=== PATIENT | male | born 1960 | race Caucasian/White ===

== ENCOUNTER → 2018-05-25 08:11 | Outpatient (CLI) | payer OTHER, SELFPAY ==
[2018-05-25 09:23] LABS: Appearance Urine UA CLEAR; Bilirubin Urine UA NEGATIVE (NEGATIVE); Color Urine UA YELLOW; Glucose Urine UA NEGATIVE (Normal); Ketones Urine UA NEGATIVE (NEGATIVE); Leukocyte Esterase Urine UA NEGATIVE (NEGATIVE); Nitrite Urine UA Negative (Negative); Occult Blood Urine UA TRACE-INTACT (Negative); Protein Urine UA NEGATIVE (Negative); Urobilinogen Urine UA 0.2 E.U./dL (0.2)
[2018-05-25 09:26] LABS: Add Manual Diff / Slide Review NO; Basophils Percent Auto 1.3 % (0-2); Eosinophils Percent Auto 3.4 % (2-4); Hemoglobin 14.4 g/dL (13.5-17.5); Lymphocytes Percent Auto 30.2 % (25-40); Mean Corpuscular HGB Conc 33.5 % (30-36); Mean Corpuscular Hemoglobin 29.9 PG (26-34); Mean Corpuscular Volume 89.3 fL (80-100); Monocytes Percent Auto 8.7 % (3-14); Neutrophils Absolute Auto 3200 /uL (3000-5900); Neutrophils Percent Auto 56.4 % (50-75); Platelet Count 264 X10^3/uL (150-400); Red Blood Cell Count 4.81 X10^6/uL (4.5-5.9); Red Cell Distribution Width 13.5 % (11.6-14.8); White Blood Cell Count 5.6 X10^3/uL (4.5-11.0)
[2018-05-25 10:06] LABS: Alanine Aminotransferase 42 IU/L (21-72); Albumin 4.1 g/dL (3.5-5.0); Albumin Globulin Ratio 1.4 (1.0-2.8); Alkaline Phosphatase 41 U/L (38-126); Aspartate Aminotransferase 27 IU/L (17-59); BUN Creatinine Ratio 21.3 (6-22); Bilirubin Total 0.4 mg/dL (0.2-1.3); Blood Urea Nitrogen 17 mg/dL (9-20); Calcium 9.2 mg/dL (8.4-10.2); Carbon Dioxide 29 mmol/L (22-32); Chloride 104 mmol/L (98-107); Cholesterol 176 mg/dL (140-199); Estimated Glomerular Filt Rate > 60.0 mL/min (>60); Globulin 2.9 g/dL (1.7-4.1); Glucose 93 mg/dL (70-100); HDL Cholesterol 48 mg/dL (40-60); HEMOLYSIS < 15 (0-50); LDL Cholesterol Calculated 108 mg/dL (<100); Potassium 3.9 mmol/L (3.4-5.1); Sodium 143 mmol/L (137-145); Triglycerides 100 mg/dL (35-150)
[2018-05-25 10:34] LABS: Prostate Specific Antigen Scrn 1.94 ng/mL (0.1-4.0)
[2018-05-25 10:38] LABS: Thyroid Stimulating Hormone 1.98 uIU/mL (0.47-4.68)
== END ==
PROVIDERS: PCP Family Medicine; Visit Provider Family Medicine
DX: E78.5 Hyperlipidemia, unspecified (principal); I10 Essential (primary) hypertension; Z12.5 Encounter for screening for malignant neoplasm of prostate
CPT/HCPCS: 36415; 80053; 80061; 81003; 84443; 85025; G0103

== ENCOUNTER → 2018-12-17 06:56 | Outpatient (CLI) | payer BC, SELFPAY ==
[2018-12-17 08:51] LABS: Alanine Aminotransferase 32 IU/L (21-72); Albumin 4.2 g/dL (3.5-5.0); Albumin Globulin Ratio 1.5 (1.0-2.8); Alkaline Phosphatase 52 U/L (38-126); Aspartate Aminotransferase 25 IU/L (17-59); Bilirubin Total 0.5 mg/dL (0.2-1.3); Blood Urea Nitrogen 20 mg/dL (9-20); Calcium 9.3 mg/dL (8.4-10.2); Carbon Dioxide 27 mmol/L (22-32); Chloride 101 mmol/L (98-107); Cholesterol 174 mg/dL (140-199); Estimated Glomerular Filt Rate > 60.0 mL/min (>60); Globulin 2.8 g/dL (1.7-4.1); Glucose 89 mg/dL (70-100); HDL Cholesterol 40 mg/dL (40-60); HEMOLYSIS < 15 (0-50); LDL Cholesterol Calculated 103 mg/dL (<100); Potassium 4.4 mmol/L (3.4-5.1); Sodium 137 mmol/L (137-145); Triglycerides 153 mg/dL (35-150)
== END ==
PROVIDERS: PCP Family Medicine; Visit Provider Family Medicine
DX: E78.5 Hyperlipidemia, unspecified (principal)
CPT/HCPCS: 36415; 80053; 80061

== ENCOUNTER → 2019-09-02 07:48 | Outpatient (CLI) | payer BC, SELFPAY ==
[2019-09-02 09:20] LABS: Appearance Urine UA CLEAR; Bilirubin Urine UA NEGATIVE (NEGATIVE); Color Urine UA YELLOW; Glucose Urine UA NEGATIVE (Negative); Ketones Urine UA NEGATIVE (NEGATIVE); Leukocyte Esterase Urine UA NEGATIVE (NEGATIVE); Nitrite Urine UA NEGATIVE (Negative); Occult Blood Urine UA TRACE-LYSED (Negative); Protein Urine UA NEGATIVE (Negative); Specific Gravity Urine UA 1.015 (1.000-1.035); Urobilinogen Urine UA 0.2 E.U./dL (0.2)
[2019-09-02 09:33] LABS: Add Manual Diff / Slide Review NO; Basophils Absolute Auto 100 /uL (0-100); Basophils Percent Auto 1.3 % (0-2); Eosinophils Absolute Auto 200 /uL (0-450); Eosinophils Percent Auto 3.9 % (2-4); Hematocrit 42.3 % (41-53); Hemoglobin 14.3 g/dL (13.5-17.5); Lymphocytes Absolute Auto 1500 /uL (1100-4500); Lymphocytes Percent Auto 27.8 % (25-40); Mean Corpuscular HGB Conc 33.8 % (30-36); Mean Corpuscular Hemoglobin 30.2 PG (26-34); Mean Corpuscular Volume 89.3 fL (80-100); Monocytes Absolute Auto 700 /uL (0-900); Monocytes Percent Auto 12.7 % (3-14); Neutrophils Absolute Auto 2900 /uL (1500-7000); Neutrophils Percent Auto 54.3 % (50-75); Platelet Count 262 X10^3/uL (150-400); Red Blood Cell Count 4.73 X10^6/uL (4.5-5.9); Red Cell Distribution Width 13.8 % (11.6-14.8); White Blood Cell Count 5.3 X10^3/uL (4.5-11.0)
[2019-09-02 09:39] LABS: Alanine Aminotransferase 23 IU/L (<50); Albumin 4.5 g/dL (3.5-5.0); Albumin Globulin Ratio 1.6 (1.0-2.8); Alkaline Phosphatase 47 U/L (38-126); Aspartate Aminotransferase 29 IU/L (17-59); BUN Creatinine Ratio 18.6 (6-22); Bilirubin Total 0.6 mg/dL (0.2-1.3); Blood Urea Nitrogen 13 mg/dL (9-20); Calcium 9.3 mg/dL (8.4-10.2); Carbon Dioxide 31 mmol/L (22-32); Chloride 104 mmol/L (98-107); Cholesterol 158 mg/dL (140-199); Estimated Glomerular Filt Rate > 60.0 mL/min (>60); Globulin 2.9 g/dL (1.7-4.1); Glucose 89 mg/dL (70-100); HDL Cholesterol 41 mg/dL (40-60); HEMOLYSIS < 15 (0-50); LDL Cholesterol Calculated 93 mg/dL (<100); Potassium 4.1 mmol/L (3.4-5.1); Sodium 141 mmol/L (137-145); Total Protein 7.4 g/dL (6.3-8.2); Triglycerides 122 mg/dL (35-150)
[2019-09-02 10:07] LABS: Prostate Specific Antigen Scrn 2.89 ng/mL (0.1-4.0)
[2019-09-02 10:30] LABS: Thyroid Stimulating Hormone 2.22 uIU/mL (0.47-4.68)
== END ==
PROVIDERS: PCP Family Medicine; Visit Provider Family Medicine
DX: Z12.5 Encounter for screening for malignant neoplasm of prostate (principal); Z51.81 Encounter for therapeutic drug level monitoring; E78.5 Hyperlipidemia, unspecified; I10 Essential (primary) hypertension
CPT/HCPCS: 36415; 80053; 80061; 81003; 84443; 85025; G0103

== ENCOUNTER → 2021-01-21 07:30 | Outpatient (CLI) | payer BC, SELFPAY ==
[2021-01-21 08:09] LABS: Add Manual Diff / Slide Review NO; Basophils Absolute Auto 100 /uL (0-100); Basophils Percent Auto 1.2 % (0-2); Eosinophils Absolute Auto 300 /uL (0-450); Eosinophils Percent Auto 5.4 % (2-4); Hemoglobin 14.2 g/dL (13.5-17.5); Lymphocytes Absolute Auto 1800 /uL (1100-4500); Lymphocytes Percent Auto 32.6 % (25-40); Mean Corpuscular HGB Conc 33.8 % (30-36); Mean Corpuscular Hemoglobin 30.3 PG (26-34); Mean Corpuscular Volume 89.6 fL (80-100); Monocytes Absolute Auto 500 /uL (0-900); Monocytes Percent Auto 9.9 % (3-14); Neutrophils Absolute Auto 2800 /uL (1500-7000); Neutrophils Percent Auto 50.9 % (50-75); Platelet Count 259 X10^3/uL (150-400); Red Blood Cell Count 4.68 X10^6/uL (4.5-5.9); Red Cell Distribution Width 13.1 % (11.6-14.8); White Blood Cell Count 5.5 X10^3/uL (4.5-11.0)
[2021-01-21 08:28] LABS: Alanine Aminotransferase 26 IU/L (<50); Albumin Globulin Ratio 1.5 (1.0-2.8); Alkaline Phosphatase 44 U/L (38-126); Aspartate Aminotransferase 27 IU/L (17-59); BUN Creatinine Ratio 18.1 (6-22); Bilirubin Total 0.5 mg/dL (0.2-1.3); Blood Urea Nitrogen 13 mg/dL (9-20); Calcium 9.3 mg/dL (8.4-10.2); Carbon Dioxide 27 mmol/L (22-32); Chloride 104 mmol/L (98-107); Cholesterol 169 mg/dL (140-199); Estimated Glomerular Filt Rate > 60.0 mL/min (>60); Globulin 2.7 g/dL (1.7-4.1); Glucose 98 mg/dL (80-110); HDL Cholesterol 53 mg/dL (40-60); HEMOLYSIS < 15 (0-50); LDL Cholesterol Calculated 82 mg/dL (<100); Potassium 4.3 mmol/L (3.4-5.1); Sodium 137 mmol/L (137-145); Total Protein 6.7 g/dL (6.3-8.2); Triglycerides 168 mg/dL (35-150)
[2021-01-21 08:44] LABS: Creatinine Urine Random 80.5 mg/dL; Microalbumin Urine Random < 0.6 mg/dL (0-1.6)
[2021-01-21 08:57] LABS: TSH w/ Reflex to FT4 2.27 uIU/mL (0.47-4.68)
== END ==
PROVIDERS: PCP Family Medicine; Referring Provider Family Medicine; Visit Provider Family Medicine
DX: E78.5 Hyperlipidemia, unspecified (principal); I10 Essential (primary) hypertension; N40.1 Benign prostatic hyperplasia with lower urinary tract symptoms; Z13.29 Encounter for screening for other suspected endocrine disorder; Z12.5 Encounter for screening for malignant neoplasm of prostate
CPT/HCPCS: 36415; 80053; 80061; 82043; 82570; 84443; 85025; G0103

== ENCOUNTER → 2021-08-30 14:16 | Outpatient (CLI) | payer BC, SELFPAY ==
--- NOTE | 2021-08-30 14:17 | DI.RAD.S_ITS ---
PROCEDURE: XR LUMBAR SPINE MIN 4V INDICATIONS: worsening lower back pain TECHNIQUE: 5 views of the lumbar spine acquired, including flexion and extension views. COMPARISON: None. FINDINGS: Bones: 5 nonrib-bearing vertebrae are present. Trace multi listhesis. Mild multilevel disc degeneration and facet joint arthropathy at the L4-L5 and L5-S1 levels. No vertebral body compression fractures. No suspicious bony lesions. Soft tissues: Overlying bowel gas pattern is normal. No suspicious soft tissue calcifications. IMPRESSION: Multilevel spondylosis. Dictated by: Brian Bailey [facility] Interpreted: Mushtaq Hoff MD on 08/30/2021 at 16:07 Transcribed by: SUBHASH on 08/30/2021 at 16:07 Approved by: Mushtaq Hoff M.D. on 08/30/2021 at 17:28
== END ==
PROVIDERS: PCP Family Medicine; Referring Provider Family Medicine; Visit Provider Family Medicine
DX: S39.012A Strain of muscle, fascia and tendon of lower back, initial encounter (principal); M47.816 Spondylosis without myelopathy or radiculopathy, lumbar region; M47.817 Spondylosis without myelopathy or radiculopathy, lumbosacral region
CPT/HCPCS: 72110

== ENCOUNTER → 2022-07-29 07:07 | Outpatient (CLI) | payer OTHER, SELFPAY ==
[2022-07-29 11:17] LABS: Alanine Aminotransferase 41 IU/L (<50); Albumin 4.3 g/dL (3.5-5.0); Albumin Globulin Ratio 1.7 (1.0-2.8); Alkaline Phosphatase 52 U/L (38-126); Aspartate Aminotransferase 31 IU/L (17-59); BUN Creatinine Ratio 19.7 (6-22); Bilirubin Total 0.5 mg/dL (0.2-1.3); Blood Urea Nitrogen 14 mg/dL (9-20); Calcium 8.9 mg/dL (8.4-10.2); Carbon Dioxide 28 mmol/L (22-32); Chloride 101 mmol/L (98-107); Estimated Glomerular Filt Rate > 60 mL/min (>60); Globulin 2.6 g/dL (1.7-4.1); Glucose 84 mg/dL (80-110); Sodium 138 mmol/L (137-145); Total Protein 6.9 g/dL (6.3-8.2)
[2022-07-29 11:21] LABS: HEMOLYSIS < 15 (0-50)
[2022-07-29 12:44] LABS: Prostate Specific Antigen Scrn 3.41 ng/mL (0.1-4.0)
== END ==
PROVIDERS: PCP Family Medicine; Referring Provider Family Medicine; Visit Provider Family Medicine
DX: E78.5 Hyperlipidemia, unspecified (principal); I10 Essential (primary) hypertension; Z12.5 Encounter for screening for malignant neoplasm of prostate
CPT/HCPCS: 36415; 80053; G0103

== ENCOUNTER → 2023-05-17 11:01 | Outpatient (CLI) | payer OTHER, SELFPAY ==
--- NOTE | 2023-05-17 11:02 | DI.RAD.S_ITS ---
PROCEDURE: XR KNEE RT 3V INDICATIONS: Right knee pain TECHNIQUE: 3 views of the knee were acquired. COMPARISON: None. FINDINGS: Bones: No fractures or dislocations. Joint spaces are maintained. No suspicious bony lesions. Soft tissues: Small joint effusion. No suspicious soft tissue calcifications. Mild prepatellar soft tissue swelling. Or IMPRESSION: No acute fracture or dislocation. Dictated by: Marija Damon M.D. on 05/17/2023 at 14:35 Approved by: Marija Damon M.D. on 05/17/2023 at 14:37
== END ==
PROVIDERS: PCP Family Medicine; Referring Provider Nurse Practitioner Family; Visit Provider Nurse Practitioner Family
DX: M25.561 Pain in right knee (principal)
CPT/HCPCS: 73562

== ENCOUNTER → 2023-08-17 08:48 | Outpatient (CLI) | payer OTHER, SELFPAY ==
[2023-08-17 09:46] LABS: Add Manual Diff / Slide Review NO; Basophils Absolute Auto 100 /uL (0-100); Basophils Percent Auto 0.8 % (0-2); Eosinophils Absolute Auto 200 /uL (0-450); Eosinophils Percent Auto 3.8 % (2-4); Hematocrit 39.9 % (41-53); Hemoglobin 13.3 g/dL (13.5-17.5); Lymphocytes Absolute Auto 1500 /uL (1100-4500); Lymphocytes Percent Auto 23.2 % (25-40); Mean Corpuscular HGB Conc 33.2 % (30-36); Mean Corpuscular Hemoglobin 29.3 PG (26-34); Mean Corpuscular Volume 88.3 fL (80-100); Monocytes Absolute Auto 700 /uL (0-900); Monocytes Percent Auto 10.6 % (3-14); Neutrophils Absolute Auto 4000 /uL (1500-7000); Neutrophils Percent Auto 61.6 % (50-75); Platelet Count 312 X10^3/uL (150-400); Red Blood Cell Count 4.52 X10^6/uL (4.5-5.9); Red Cell Distribution Width 13.4 % (11.6-14.8); White Blood Cell Count 6.5 X10^3/uL (4.5-11.0)
[2023-08-17 10:22] LABS: Alanine Aminotransferase 22 IU/L (<50); Albumin 3.9 g/dL (3.5-5.0); Albumin Globulin Ratio 1.2 (1.0-2.8); Alkaline Phosphatase 55 U/L (38-126); BUN Creatinine Ratio 15.7 (6-22); Bilirubin Total 0.4 mg/dL (0.2-1.3); Blood Urea Nitrogen 11 mg/dL (9-20); Calcium 9.1 mg/dL (8.4-10.2); Carbon Dioxide 31 mmol/L (22-32); Chloride 102 mmol/L (98-107); Cholesterol 146 mg/dL (140-199); Estimated Glomerular Filt Rate > 60 mL/min (>60); Globulin 3.2 g/dL (1.7-4.1); Glucose 94 mg/dL (80-110); HDL Cholesterol 42 mg/dL (40-60); HEMOLYSIS < 15 (0-50); LDL Cholesterol Calculated 88 mg/dL (<100); Potassium 4.1 mmol/L (3.4-5.1); Sodium 138 mmol/L (137-145); Total Protein 7.1 g/dL (6.3-8.2); Triglycerides 82 mg/dL (35-150)
[2023-08-17 10:39] LABS: Prostate Specific Antigen 2.19 ng/mL (0.10-4.00)
[2023-08-17 12:52] LABS: TSH w/ Reflex to FT4 1.72 uIU/mL (0.47-4.68)
[2023-08-18 14:56] LABS: Aspartate Aminotransferase 26 IU/L (17-59)
== END ==
PROVIDERS: PCP Family Medicine; Referring Provider Family Medicine; Visit Provider Family Medicine
DX: F41.9 Anxiety disorder, unspecified (principal); N40.1 Benign prostatic hyperplasia with lower urinary tract symptoms; I10 Essential (primary) hypertension; E78.5 Hyperlipidemia, unspecified
CPT/HCPCS: 36415; 80053; 80061; 84153; 84443; 85025

== ENCOUNTER → 2024-08-22 08:16 | Outpatient (CLI) | payer BC, SELFPAY ==
[2024-08-22 08:37] LABS: Add Manual Diff / Slide Review NO; Basophils Absolute Auto 100 /uL (0-100); Eosinophils Absolute Auto 300 /uL (0-450); Hematocrit 42.3 % (41-53); Hemoglobin 14.2 g/dL (13.5-17.5); Lymphocytes Absolute Auto 1600 /uL (1100-4500); Lymphocytes Percent Auto 26.9 % (25-40); Mean Corpuscular HGB Conc 33.7 % (30-36); Mean Corpuscular Volume 89.2 fL (80-100); Monocytes Absolute Auto 600 /uL (0-900); Monocytes Percent Auto 10.4 % (3-14); Neutrophils Absolute Auto 3400 /uL (1500-7000); Neutrophils Percent Auto 56.7 % (50-75); Platelet Count 286 X10^3/uL (150-400); Red Blood Cell Count 4.74 X10^6/uL (4.5-5.9); Red Cell Distribution Width 13.4 % (11.6-14.8)
[2024-08-22 08:58] LABS: Alanine Aminotransferase 26 IU/L (<50); Albumin 4.2 g/dL (3.5-5.0); Albumin Globulin Ratio 1.8 (1.0-2.8); Alkaline Phosphatase 50 U/L (38-126); Aspartate Aminotransferase 25 IU/L (17-59); BUN Creatinine Ratio 17.6 (6-22); Bilirubin Total 0.7 mg/dL (0.2-1.3); Blood Urea Nitrogen 13 mg/dL (9-20); Calcium 9.4 mg/dL (8.4-10.2); Carbon Dioxide 27 mmol/L (22-32); Chloride 106 mmol/L (98-107); Cholesterol 189 mg/dL (140-199); Estimated Glomerular Filt Rate > 60 mL/min (>60); Globulin 2.4 g/dL (1.7-4.1); Glucose 98 mg/dL (80-110); HDL Cholesterol 46 mg/dL (40-60); HEMOLYSIS < 15 (0-50); LDL Cholesterol Calculated 108 mg/dL (<100); Sodium 137 mmol/L (137-145); Total Protein 6.6 g/dL (6.3-8.2); Triglycerides 175 mg/dL (35-150)
[2024-08-22 09:28] LABS: Prostate Specific Antigen 1.51 ng/mL (0.10-4.00); Prostate Specific Antigen Scrn 1.53 ng/mL (0.1-4.0)
== END ==
PROVIDERS: PCP Family Medicine; Referring Provider Urology; Visit Provider Urology
DX: Z12.5 Encounter for screening for malignant neoplasm of prostate (principal); N40.1 Benign prostatic hyperplasia with lower urinary tract symptoms; I10 Essential (primary) hypertension; E78.5 Hyperlipidemia, unspecified
CPT/HCPCS: 36415; 80053; 80061; 84153; 85025; G0103

== ENCOUNTER 2024-12-10 07:11 | Day surgery (SDC) | payer BC, SELFPAY ==
[2024-12-10] MEDS: LACTATED RINGERS 1,000 ML 42 ML IV (07:22)
[2024-12-10 07:28] VITALS: BP 132/73; RESP 17; TEMP 36.3; O2SAT 97
--- NOTE | 2024-12-10 08:59 | PM.HP.IH.1 ---
History of Present Illness History of Present Illness Chief complaint: Screening Colonoscopy Narrative: 64-year-old male with hypertension and BPH and a history of a colonoscopy 10 years ago which identified a small polyp. He presents for colonoscopic screening. He has no complaints. [facility] Medical History Bronchitis Insomnia Lumbar strain Anxiety Skin tag BPH (benign prostatic hyperplasia) Hyperlipemia (2010) Hypertension (2010) Sleep apnea (2011) Colon polyps (2013) Surgical History Status post hernia repair (2014) Family History Mother No problems noted. Social History marital status: number of children: 2 occupational status: previously employed leisure activities: exercise Smoking Status: Never smoker alcohol intake: current caffeine: Yes Type(s) of exercise: walking frequency: daily duration: 60-90 minutes/day Meds Home Medications and Allergies Home Medications Medication Instructions Recorded Confirmed Type CPAP #1 ea 05/04/21 08/27/24 Rx CPAP MASK #1 ea 05/04/21 08/27/24 Rx CPAP MASK CUSHIONS #1 ea 05/04/21 08/27/24 Rx CPAP TUBING #1 ea 05/04/21 08/27/24 Rx finasteride 5 mg tablet See Rx Instructions .Route 07/30/24 12/10/24 Rx .COMPLEX #90 tabs tamsulosin 0.4 mg capsule See Rx Instructions .Route 07/30/24 12/10/24 Rx .COMPLEX #180 caps lorazepam 1 mg tablet 1 mg PO BEDTIME PRN agitation #30 08/19/24 08/27/24 Rx tabs sildenafil 100 mg tablet 100 mg PO DAILY PRN 08/21/24 08/27/24 History simvastatin 40 mg tablet 40 mg PO ONCE PM #90 tabs 10/17/24 12/10/24 Rx lisinopril 20 mg tablet 20 mg PO DAILY #90 tabs 10/21/24 12/10/24 Rx Allergies Allergy/AdvReac Type Severity Reaction Status Date / Time No Known Drug Allergies Allergy Verified 12/10/24 07:27 Review of Systems Review of Systems Narrative: Review of systems-2 comprehensive questioning with the exception of the previously mentioned chronic problems. Exam Vital Signs (past 8 hours): - 12/10/24 07:28 Temperature 97.3 F L Respiratory Rate 17 Blood Pressure 132/73 Pulse Oximetry 97 Oxygen Delivery Method Room Air Oxygen Delivery Method Room Air Narrative Exam Narrative: In general this is well-nourished well-developed male alert and oriented x3 in no acute distress. Head is normocephalic and atraumatic. Neck is supple. Back is without CVA or spinous process tenderness. Lungs are clear to auscultation. Chest is symmetric nontender with normal inspiratory and expiratory excursion. Heart has a regular rate and rhythm with no murmur or gallop. Abdomen is soft and nontender with normal bowel sounds. Neurological exam is grossly nonfocal. Assessment & Plan Assessment and plan (1) History of colon polyps: Status: Acute Plan I have recommended screening colonoscopy. Alternatives, risks and benefits were discussed in detail. Patient voices understanding, asked no questions and desires to proceed as I have outlined. Time-Based Coding :: [TOTAL MINUTES] spent with patient and on the chart (including review of chart, obtaining history, exam, reviewing outside data, placing orders, documenting exam and treatment plan, and counseling patient) on [DATE]. [employer] Document charge(s): Yes
[2024-12-10] MEDS: GLUCAGON,HUMAN RECOMBINANT 1 MG/ML VIAL 0.5 MG IV (09:34)
[2024-12-10 09:50] VITALS: BP 113/72; PULSE 75; RESP 16; TEMP 36.3; O2SAT 94
--- NOTE | 2024-12-10 09:52 | PM.OP.COLON ---
Operative Date/Time/Diagnoses Date of procedure: 12/10/24 Time of procedure: 09:25 Pre-op diagnosis: History of colon polyps Post-op diagnosis: same Procedure & Clinicians Study performed: Colonoscopy Same procedure as scheduled: Yes Indications: History of colon polyp Surgeon: Ricardo Puga Procedure Notes Procedure in detail: After obtaining informed consent properly identifying the patient the patient was transported to the endoscopy suite and was placed on the table in the left lateral decubitus position. IV sedation was administered and when an adequate level of sedation had been reached, the procedure was begun. A 2 m fiberoptic flexible colonoscope was passed transanally into the rectum and was guided under direct endoscopic vision to the level of the cecum. The cecum was positively visualized at the confluence of tenia coli. Prep was marginal. Exam was performed retrograde. There was a moderate amount of liquid stool in the ascending colon which was aspirated. Once aspirated the cecum and ascending colon were normal in appearance without evidence of polyp, arteriovenous malformati or erosion. Hepatic flexure transverse colon and splenic flexure also had to be aspirated of a moderate amount liquid stool however the findings were identical without evidence of mucosal abnormality. The descending colon was similarly unremarkable in appearance. Sigmoid colon was quite tortuous and a few diverticuli were in evidence without findings consistent with diverticulitis. The rectum was normal as the scope was withdrawn. Patient tolerated the procedure well and was transported to the recovery room awake and alert. Post-procedure Plan for aftercare: Discharge to home. Repeat colonoscopy 5 years.
[2024-12-10 09:55] VITALS: BP 104/61; PULSE 64; RESP 10; O2SAT 94
[2024-12-10 10:00] VITALS: BP 118/63; PULSE 61; RESP 10; O2SAT 94
[2024-12-10 10:14] VITALS: BP 121/66; PULSE 64; RESP 16; TEMP 36.2; O2SAT 95
== END 2024-12-10 10:39 | disposition home or self-care (01) ==
PROVIDERS: PCP Family Medicine; Referring Provider Surgery; Visit Provider Surgery
PROC: 0DJD8ZZ Inspection of Lower Intestinal Tract, Via Natural or Artificial Opening Endoscopic (ICD-10-PCS; CPT 45378; principal; 2024-12-10 08:30)
DX: Z12.11 Encounter for screening for malignant neoplasm of colon (principal); Z86.0100 Personal history of colon polyps, unspecified; K57.30 Diverticulosis of large intestine without perforation or abscess without bleeding
CPT/HCPCS: 45378; J1610; J2704

== ENCOUNTER → 2025-07-30 12:39 | Outpatient (CLI) | payer MEDICARE, OTHER, SELFPAY | PROVIDERS: PCP Family Medicine; Visit Provider Urology | DX: N40.1 Benign prostatic hyperplasia with lower urinary tract symptoms (principal) | CPT/HCPCS: 87086 ==